=== PATIENT | female | born 1995 | race Two or more races ===

== ENCOUNTER 2020-10-15 03:45 | Emergency (ER) | payer OTHER ==
[~2020-10-15] VITALS: Ht 170.2 cm; Wt 59.0 kg
[2020-10-15] MEDS ORDERED: ACETAMINOPHEN 500 MG TABLET PO ONE (04:30)
[2020-10-15] MEDS ORDERED: DEXAMETHASONE 4 MG TABLET PO ONE (04:30)
[2020-10-15] MEDS ORDERED: ACETAMINOPHEN 500 MG TABLET ONE (04:30)
[2020-10-15] MEDS ORDERED: DEXAMETHASONE 4 MG TABLET ONE (04:30)
[2020-10-15] MEDS ORDERED: AMOXICILLIN 500 MG CAPSULE ONE (05:48)
[2020-10-15 05:53] VITALS: BP 122/71
[2020-10-15] MEDS ORDERED: AMOXICILLIN 500 MG CAPSULE PO ONE (06:00)
[2020-10-15] MEDS ORDERED: MORPHINE SULFATE 4 MG/ML, 1ML ONE (06:26)
== END 2020-10-15 05:56 | disposition home or self-care (01) ==
LOC: ED 04:15
DX: J02.0 Streptococcal pharyngitis (principal)
CPT/HCPCS: 87880; 99284